=== PATIENT | male | born 1960 | race Hispanic/Latino ===

== ENCOUNTER 2022-08-28 11:03 | Emergency (ER) | payer OTHER ==
[2022-08-28] VITALS (11 sets, daily range): BP systolic 119–146; BP diastolic 58–92
[~2022-08-28] VITALS: Ht 170.2 cm; Wt 81.6 kg
[2022-08-28] MEDS ORDERED: METFORMIN HCL1000 MG PO (11:21)
[2022-08-28] MEDS ORDERED: TAMSULOSIN0.4 MG PO (11:22)
[2022-08-28 11:58] LABS: BASO% 0.9 % (0-3); EOS% 1.5 % (0-8); HEMATOCRIT 37.5 % (39.0-50.0); HEMOGLOBIN 12.3 g/dl (14.0-18.0); IMMATURE GRANULOCYTES 0.4 % (0.0-5.0); LYMPH% 28.2 % (15-41); MEAN CELL VOLUME 83.9 fL CALC (80.0-100.0); MEAN CORPUSCULAR HGB 27.5 pG CALC (26.0-32.0); MEAN CORPUSCULAR HGB CONC 32.8 g/dL CAL (32.0-36.0); MONO% 7.3 % (2-13); NEUT# 4.67 thou/uL (1.82-7.42); NEUT% 61.7 % (42-76); RED BLOOD COUNT 4.47 mill/uL (4.70-6.10); RED CELL DISTRI WIDTH 12.7 % (11.5-15.5)
[2022-08-28 12:08] LABS: ALKALINE PHOSPHATASE 62 u/l (38-126); ANION GAP 14 (6-22 (CALC)); BILIRUBIN, TOTAL 0.4 mg/dL (0.2-1.3); BUN 14 mg/dL (8-23); BUN/CREATININE RATIO 21 (12-20 (CALC)); CARBON DIOXIDE 20 mmol/l (22-30); CHLORIDE 106 mmol/l (95-108); CREATININE 0.7 mg/dL (0.7-1.3); GFR FOR AFR.AMER. > 60 ML/MIN (>=60 (CALC)); GFR OTHER RACES > 60 ML/MIN (>=60 (CALC)); POTASSIUM 4.2 mmol/l (3.5-5.1); SGOT/AST 25 u/l (19-48); SODIUM 136 mmol/l (137-146); TOTAL PROTEIN 7.4 g/dL (6.3-8.2)
[2022-08-28] MEDS ORDERED: IBUPROFEN600 MG PO (13:53)
== END 2022-08-28 14:13 | disposition home or self-care (01) | DRG 605 ==
LOC: ED 11:03
PROVIDERS: Family Medicine
DX: S00.33XA Contusion of nose, initial encounter (principal); S00.31XA Abrasion of nose, initial encounter; M54.2 Cervicalgia; M25.561 Pain in right knee; M25.531 Pain in right wrist; E11.9 Type 2 diabetes mellitus without complications; V43.62XA Car passenger injured in collision with other type car in traffic accident, initial encounter; Z79.84 Long term (current) use of oral hypoglycemic drugs